=== PATIENT | female | born 1950 | race African-American/Black ===

== ENCOUNTER → 2017-01-07 | Outpatient (CLI) | payer MEDICARE, BC ==
[~2017-01-07] MED LIST: 24 HOUR ALLER15.8 ML; ACETAMINOPHEN P1 TA2 PO; ACETAMINOPHEN500 M5 PO; ALL DAY ALLERGY10 M1 PO; ALLEGRA PO; ALLERGY10 M2 PO; AMLODIPINE BESYL5 MG PO; ASPIRIN PO; AVALIDE 150-12.1 TAB PO; AVALIDE PO; BENTYL20 MG PO; CALCIUM 600 W/D1 TA1 PO; CALTRATE 600+D PO; CERTAGEN PO; CIPRO PO; CLOBETASOL E 0.60 GM TOP; CLONAZEPAM0.5 MG PO; COUMADIN PO; COUMADIN5 MG PO; COUMADIN6 MG PO; CYANOCOBAL1000 MCG/1 IJ; CYPROHEPTADINE H4 MG PO; DESONIDE15 GM; DICLOFENAC PO; DOXEPIN PO; EFFER-K 20 MEQ20 MEQ PO; EFFEXOR PO; EFFEXOR XR150 MG PO; EFFEXOR-XR150 MG PO; ESTRACE42.5 GM; FEOSOL PO; FIORICET 50-321 EACH PO; FISH OIL 1,0001 CAP PO; FLEXERIL10 MG PO; FLONASE 0.05% N16 G1; FLONASE16 GM; FLUTICASONE PRO16 GM; GLUCOSAMINE PO; HALOBETASOL PRO15 GM; HIGH POTENCY IRON; HYDROCHLOROTHIA25 MG PO; HYDROCODON-ACE1 EAC7 PO; HYDROCODONE-APA1 T55 PO; HYDROXYZINE HCL25 M1 PO; HYDROXYZINE HCL50 MG PO; IBUPROFEN PO; IMODIUM A-D2 M1 PO; IRON 21/7 TABL1 EACH PO; IRON1 TA1 PO; K-DUR20 ME1 PO; K-DUR20 ME2 PO; KCL PO; KLONOPIN PO; KLONOPIN0.5 M2 PO; KLONOPIN0.5 MG PO; LASIX PO; LASIX20 MG PO; LISINOPRIL-HCTZ1 T15 PO; LISINOPRIL-HCTZ1 T16 PO; LISINOPRIL-HCTZ1 T17 PO; MEGESTROL ACETA40 MG PO; MOBIC PO; MULTI VITAMIN1 EACH PO; MULTI-DAY1 TAB PO; MULTIPLE VITAMI1 T10 PO; NORVASC PO; OMEPRAZOLE20 M1 PO; OMEPRAZOLE40 M1 PO; OMEPRAZOLE40 MG PO; OXYCODONE; OXYCODONE HCL5 MG PO; PAIN RELIEF325 MG PO; PERCOCET 5-3251 TAB PO; PERIACTIN4 M1 PO; PHENERGAN25 M1 PO; POTASSIUM CHLO20 ME1 PO; PREDNISONE PO; PREDNISONE10 MG PO; PRILOSEC40 MG PO; PROMETHAZINE W118 M1; QUESTRAN POWDER4 GM; QUESTRAN POWDER4 GM PO; RA GLUCOSAMINE PO; TEMOVATE 0.05%15 G1 EXT; URSODIOL500 MG PO; VENLAFAXINE HC150 MG PO; VERAMYST10 GM NS; VITAL-D RX TABL1 TAB; VITAL-D RX TABL1 TAB PO; VITAMIN D-32000 UNI2 PO; VITAMIN D50000 UNIT; VITAMIN D50000 UNIT PO; ZOFRAN ODT4 MG PO; ZOLOFT PO; ZOLOFT50 MG PO; ZYRTEC PO; ZYRTEC10 M2 PO; [UNRECOGNIZED DRUG - OTHER]; [UNRECOGNIZED DRUG - OTHER]; [UNRECOGNIZED DRUG - OTHER] PO; [UNRECOGNIZED DRUG - REMARK] PO
[2017-01-07 12:17] LABS: BASOPHIL% 0.6 % (0-2.5); EOSINOPHIL# 0.8 X10e3 (0-0.7); EOSINOPHIL% 11.8 % (0.0-7.0); HEMATOCRIT 34.3 % (35.0-45.0); HEMOGLOBIN 11.2 gm/dL (12.0-16.0); LYMPHOCYTE# 1.3 X10e3 (1.0-3.5); LYMPHOCYTE% 18.5 % (17.0-45.0); MEAN CELL VOLUME 85.3 FL (83-96); MEAN CORPUSCULAR HEMOGLOBIN 27.8 PG (28-34); MEAN CORPUSCULAR HGB CONC 32.6 g/dL (30-36); MEAN PLATELET VOLUME 8.7 FL (6.5-11.5); MONOCYTE# 0.6 X10e3 (0-1.0); NEUTROPHIL# 4.2 X10e3 (1.5-7.1); NEUTROPHIL% 60.1 % (40-75); PLATELET COUNT 231 X10e3 (140-420); RED BLOOD COUNT 4.02 X10e (3.90-5.30); RED CELL DISTRIBUTION WIDTH 13.6 % (11.0-15.5); WHITE BLOOD COUNT 6.9 X10e3 (4.0-10.5)
[2017-01-07 12:19] LABS: DIFF IND NO
[2017-01-07 12:33] LABS: ALBUMIN SERUM 4.1 g/dL (3.5-5.0); BILIRUBIN,TOTAL 0.6 mg/dL (0.2-2.0); CALCIUM SERUM 9.3 mg/dL (8.4-10.2); CREATININE SERUM 0.6 mg/dL (0.6-1.4); GLOM FILT RATE Estimated 108.6 mL/min (>60); POTASSIUM 4.1 mmol/L (3.5-5.1); PROTEIN TOTAL SERUM 7.6 g/dL (6.0-8.3)
== END | disposition home or self-care (01) ==
LOC: SLABONLY 11:53
PROVIDERS: Internal Medicine Gastroenterology
DX: D64.9 Anemia, unspecified (principal)
CPT/HCPCS: 36415; 80053; 85025